=== PATIENT | male | born 1955 | race African-American/Black ===

== ENCOUNTER → 2017-05-24 | Outpatient (CLI) | payer BC ==
--- NOTE | 2017-05-24 09:18 | RADIOLOGY REPORT (SQ) ---
EXAM DESCRIPTION: CT LUNG CANCER SCREENING COMPLETED DATE/TIME: 05/24/2017 8:13 am REASON FOR STUDY: TOBACCO USE (Z72.0) Z72.0 TOBACCO USE Has the patient had a Chest CT scan within the past year? No Was the patient offered tobacco cessation counseling? Yes Was the patient engaged in shared decision making for this test? Yes Does the patient have signs or symptoms of Lung Cancer? No Is the patient a smoker? Yes How many packs per year? 365 How many years since quitting smoking? Not applicable Patients age: 62 COMPARISON: None. TECHNIQUE: Low Dose CT scan performed of the chest without intravenous contrast for purposes of scre ening for lung cancer. Images reviewed with lung, soft tissue and bone windows. Reconstructed coron al and sagittal MPR images reviewed. All images stored on PACS. All CT scanners at this facility use dose modulation, iterative reconstruction, and/or weight based d osing when appropriate to reduce radiation dose to as low as reasonably achievable (ALARA). [facility]: Dose Right [facility]: CareDose [facility]: Dose Right [facility]: Teradose 4D [facility]: [employer] RADIATION DOSE: 2.8 mGy. . LIMITATIONS: No technical limitations. FINDINGS: LUNGS AND PLEURA: No masses or nodules. No pleural effusions or calcifications. No pne umothorax. Minimal peripheral lung parenchymal interstitial changes. Biapical blebs are present. HILAR AND MEDIASTINAL STRUCTURES: No identified masses. No abnormal nodes. HEART AND VASCULAR STRUCTURES: No aortic aneurysm. No pericardial effusion. No cardiac devices. CORONARY ARTERY CALCIFICATIONS: No significant calcifications. UPPER ABDOMEN: No significant findings. THYROID AND OTHER SOFT TISSUES: No masses. No adenopathy. BONY STRUCTURES: No significant finding. OTHER: No other significant findings. IMPRESSION: NO SIGNIFICANT FINDING ON NON-CONTRASTED CHEST CT. NO OTHER CLINICALLY SIGNIFICANT/POTENTIALLY CLINICALLY SIGNIFICANT FINDINGS LUNGRADS: LUNGRADS: 1 NEGATIVE. NO NODULES, OR DEFINITELY BENIGN NODULES MODIFIER: NONE RECOMMENDATION: Continue annual screening with LDCT in 12 months. COMMENT: CRITERIA: No lung nodules. Nodules with specific calcifications: Complete, central, popcorn, concentric rings and fat containin g nodules. TECHNICAL DOCUMENTATION: JOB ID: [id number] Quality ID # [id number]: Final reports with documentation of one or more dose reduction techniques (e.g., Au tomated exposure control, adjustment of the mA and/or kV according to patient size, use of iterative reconstruction technique) 2010 [facility]
== END ==
LOC: RAD 07:30
PROVIDERS: ATTEND Physician Assistant
DX: Z72.0 Tobacco use (principal)
CPT/HCPCS: G0297

== ENCOUNTER 2018-01-27 13:45 | Emergency (ER) | payer SELFPAY ==
--- NOTE | 2018-01-27 14:17 | ER Document Report ---
ED General - General Chief Complaint: Difficulty Swallowing Stated Complaint: POSSIBLE ABSCESS Time Seen by Provider: 01/27/18 14:02 Mode of Arrival: Ambulatory Information source: Patient Notes: Patient sent to the emergency department from urgent care for possible peritonsillar abscess. Patient has a hx of periotonsillar abscess. Says he had one years ago that was incised and drained. His current symptoms feel similar to previous. Patient says that he began having throat pain and difficulty swallowing yesterday. Denies fever, chills, rhinorrhea, cough. I have greeted and performed a rapid initial assessment of this patient. A comprehensive ED assessment and evaluation of the patient, analysis of test results and completion of the medical decision making process will be conducted by additional ED providers. PHYSICAL EXAMINATION: GENERAL: Well-appearing, well-nourished and in no acute distress. HEAD: Atraumatic, normocephalic. EYES: Pupils equal round extraocular movements intact, conjunctiva are normal. ENT: Nares patent. Unable to completely visualize the posterior pharynx. Slight swelling on the left. Patient unable to open mouth very wide. NECK: Normal range of motion. LUNGS: No respiratory distress Musculoskeletal: Normal range of motion NEUROLOGICAL: Normal speech, normal gait. PSYCH: Normal mood, normal affect. SKIN: Warm, Dry, normal turgor, no rashes or lesions noted. TRAVEL OUTSIDE OF THE [place] IN LAST 30 DAYS: No - Related Data Allergies/Adverse Reactions: No Known Allergies Allergy (Verified 01/27/18 13:45) Past Medical History - Social History Smoking Status: Smoker,Current Status Unk Family History: Reviewed & Not Pertinent - Past Medical History Cardiac Medical History: Reports: Hx Hypertension Pulmonary Medical History: Reports: Hx Pneumonia Denies: Hx Tuberculosis Endocrine Medical History: Reports: Hx Diabetes Mellitus Type 2 GI Medical History: Denies: Hx Gastroesophageal Reflux Disease Past Surgical History: Denies: Hx Pacemaker - Immunizations Hx Diphtheria, Pertussis, Tetanus Vaccination: No Physical Exam - Vital signs Vitals: Temp Pulse Resp BP Pulse Ox 98.5 F 71 16 191/96 H 96 01/27/18 13:51 01/27/18 13:51 01/27/18 13:51 01/27/18 13:51 01/27/18 13:51 Course - Vital Signs Vital signs: Temp Pulse Resp BP Pulse Ox 98.5 F 71 16 191/96 H 96 01/27/18 13:51 01/27/18 13:51 01/27/18 13:51 01/27/18 13:51 01/27/18 13:51 Discharge - Discharge Referrals: MARY ALEXANDRE PA [Primary Care Provider] - Follow up as needed
[2018-01-27 14:31] LABS: ABSOLUTE BASOPHILS # (AUTO) 0.1 10^3/uL (0.0-0.2); ABSOLUTE EOSINOPHILS # (AUTO) 0.4 10^3/uL (0.0-0.6); ABSOLUTE LYMPHOCYTES (AUTO) 2.3 10^3/uL (0.5-4.7); ABSOLUTE MONOCYTES (AUTO) 0.6 10^3/uL (0.1-1.4); BASOPHILS % (AUTO) 1.1 % (0-2); EOSINOPHILS % (AUTO) 3.9 % (0-6); HEMATOCRIT 41.4 % (37.9-51.0); HEMOGLOBIN 14.5 g/dL (13.5-17.0); LYMPHOCYTES % (AUTO) 24.8 % (13-45); MEAN CORPUSCULAR HEMOGLOBIN 34.1 pg (27.0-33.4); MEAN CORPUSCULAR HGB CONC 35.1 g/dL (32.0-36.0); MEAN CORPUSCULAR VOLUME 97 fl (80-97); MONOCYTES % (AUTO) 6.9 % (3-13); PLATELET COUNT 169 10^3/uL (150-450); RED BLOOD COUNT 4.26 10^6/uL (4.35-5.55); RED CELL DISTRIBUTION WIDTH 13.4 % (11.5-14.0); SEGMENTED NEUTROPHILS % (AUTO) 63.3 % (42-78); TOTAL CELLS COUNTED % (AUTO) 100 %; WHITE BLOOD COUNT 9.4 10^3/uL (4.0-10.5)
[2018-01-27 14:52] LABS: ALANINE AMINOTRANSFERASE 40 U/L (21-72); ALKALINE PHOSPHATASE 67 U/L (38-126); ANION GAP 11 (5-19); ASPARTATE AMINO TRANSFERASE 32 U/L (17-59); BILIRUBIN,DIRECT 0.2 mg/dL (0.0-0.4); BILIRUBIN,TOTAL 0.4 mg/dL (0.2-1.3); BLOOD UREA NITROGEN 11 mg/dL (7-20); CALCIUM 9.3 mg/dL (8.4-10.2); CARBON DIOXIDE 27 mmol/L (22-30); CHLORIDE 104 mmol/L (98-107); GLUCOSE 124 mg/dL (75-110); POTASSIUM 3.8 mmol/L (3.6-5.0); SODIUM 141.7 mmol/L (137-145)
--- NOTE | 2018-01-27 15:43 | RADIOLOGY REPORT (SQ) ---
EXAM DESCRIPTION: CT SOFT TISSUE NECK WITH COMPLETED DATE/TIME: 01/27/2018 3:24 pm REASON FOR STUDY: soft throat, muffled voice. COMPARISON: CT soft tissue neck 08/05/2011 TECHNIQUE: Post IV contrasted scanning from skull base through lung apices with review of bone, soft tissue and lung windows. Reconstructed coronal and sagittal MPR images reviewed. All images stored on PACS. All CT scanners at this facility use dose modulation, iterative reconstruction, and/or weight based d osing when appropriate to reduce radiation dose to as low as reasonably achievable (ALARA). [facility]: Dose Right [facility]: CareDose [facility]: Dose Right [facility]: Teradose 4D [facility]: [employer] CONTRAST TYPE AND DOSE: contrast/concentration: Isovue 350.00 mg/ml; Total Contrast Delivered: 74.0 ml; Total Saline Delivered: 32.0 ml RENAL FUNCTION: Creatinine 1.0 RADIATION DOSE: CT Rad equipment meets quality standard of care and radiation dose reduction techniq ues were employed. CTDIvol: 15.2 mGy. DLP: 584 mGy-cm. . LIMITATIONS: None. FINDINGS: The left pharyngeal tonsil is enlarged, 5 cm craniocaudad by 3.4 cm transverse by 3 cm AP. There is an ill-defined hypodensity along the deep aspect of the left pharyngeal tonsil axial image 58 and coronal image 29, worrisome for either an intratonsillar abscessor a deep peritonsillar absc ess. This measures about 1.1 x 1.6 cm in size on axial image 58. Moderate airway narrowing is present in the oropharynx at the level of the pharyngeal tonsil. There is inflammation in the left parapharyngeal space, extending down into the supraglottic larynx o n axial images 62-69. Asymmetric swelling of the left area epiglottic fold is present with effacemen t of the left piriform recess. No prevertebral phlegmon or fluid. These findings were called to Dr. Mcgovern in the emergency room. SKULL BASE: Unremarkable MAJOR SALIVARY GLANDS: No solid or cystic masses. No inflammatory changes. LYMPHADENOPATHY: No adenopathy. MUCOSAL MASSES OR ASYMMETRY: As above LARYNX/CORDS: As above VASCULAR STRUCTURES: The major vessels are patent. LUNG APICES: Clear. BONES: Intact. THYROID: Normal size. No masses. PARANASAL SINUSES: Clear. OTHER: No other significant finding. IMPRESSION: Left pharyngeal tonsillitis with 1.6 x 1.1 cm intra tonsillar or peritonsillar abscess a long the deep aspect of the pharyngeal tonsil. TECHNICAL DOCUMENTATION: JOB ID: [id number] Quality ID # [id number]: Final reports with documentation of one or more dose reduction techniques (e.g., Au tomated exposure control, adjustment of the mA and/or kV according to patient size, use of iterative reconstruction technique) 2010 [employer]- All Rights Reserved Reading location - IP/workstation name: [email or web address]
[2018-01-27] MEDS ORDERED: CLINDAMYCIN 300 MG/D5W RTU 300 MG/50 ML RTUPB IV ONE (16:00)
[2018-01-27] MEDS ORDERED: DEXAMETHASONE SOD PHOS INJ 10 MG/1 ML VIAL IV ONE (16:01)
[2018-01-27] MEDS ORDERED: CLINDAMYCIN 600 MG/D5W RTU 600 MG/50 ML RTUPB IV ONE (16:01)
--- NOTE | 2018-01-27 19:12 | ER Document Report ---
ED General - General Chief Complaint: Difficulty Swallowing Stated Complaint: POSSIBLE ABSCESS Time Seen by Provider: 01/27/18 14:02 Mode of Arrival: Ambulatory Information source: Patient Notes: This is a 62-year-old man with a history of hypertension, diabetes who he does have a history of peritonsillar abscess that had to be drained in the past that presents to the emergency room with a sore throat. He states it is only started for a day and he did not wanted to progress to the way it was last time. He is able to swallow and is having no difficulty breathing. He has had no fever. TRAVEL OUTSIDE OF THE [place] IN LAST 30 DAYS: No - HPI Onset: Yesterday Onset/Duration: Gradual Quality of pain: Dull Severity: Moderate Pain Level: 2 Associated symptoms: denies: Chest pain, Hoarseness, Shortness of breath Exacerbated by: Denies Relieved by: Denies Similar symptoms previously: Yes Recently seen / treated by doctor: No - Related Data Allergies/Adverse Reactions: No Known Allergies Allergy (Verified 01/27/18 13:45) Past Medical History - General Information source: Patient - Social History Smoking Status: Smoker,Current Status Unk Cigarette use (# per day): Yes - 10 cigarettes a day Chew tobacco use (# tins/day): No Frequency of alcohol use: Occasional Drug Abuse: None Lives with: Family Family History: Reviewed & Not Pertinent Patient has suicidal ideation: No Patient has homicidal ideation: No - Past Medical History Cardiac Medical History: Reports: Hx Hypertension Pulmonary Medical History: Reports: Hx Pneumonia Denies: Hx Tuberculosis Endocrine Medical History: Reports: Hx Diabetes Mellitus Type 2 Renal/ Medical History: Denies: Hx Peritoneal Dialysis GI Medical History: Denies: Hx Gastroesophageal Reflux Disease Past Surgical History: Denies: Hx Pacemaker - Immunizations Hx Diphtheria, Pertussis, Tetanus Vaccination: No Review of Systems - Review of Systems Constitutional: denies: Chills, Fever EENT: See HPI Cardiovascular: No symptoms reported Respiratory: No symptoms reported Gastrointestinal: No symptoms reported Genitourinary: No symptoms reported Male Genitourinary: No symptoms reported Musculoskeletal: No symptoms reported Skin: No symptoms reported Hematologic/Lymphatic: No symptoms reported Neurological/Psychological: No symptoms reported Physical Exam - Vital signs Vitals: Temp Pulse Resp BP Pulse Ox 98.5 F 71 16 191/96 H 96 01/27/18 13:51 01/27/18 13:51 01/27/18 13:51 01/27/18 13:51 01/27/18 13:51 Notes: Physical exam: GENERAL: 62-year-old man, alert and oriented x3, no acute distress HEAD: Atraumatic, normocephalic. EYES: Pupils equal round and reactive to light, extraocular movements intact, sclera anicteric, conjunctiva are normal. ENT: Oropharynx shows some erythema posteriorly. He has no obvious fluctuance to the posterior wall in the peritonsillar area. There is swelling of the tonsils (more on the left). There is no stridor, no uvula deviation, no hot potato voice, no drooling. NECK: Normal range of motion, supple without obvious mass. There is no tenseness of the tissue procedure. A LUNGS: Breath sounds clear to auscultation bilaterally and equal. No wheezes rales or rhonchi. HEART: Regular rate and rhythm without murmurs, rubs or gallops. ABDOMEN: Soft, normoactive bowel sounds. No tenderness to palpation. No guarding, no rebound. No masses appreciated. EXTREMITIES: Normal range of motion, no pitting or edema. No clubbing or cyanosis. NEUROLOGICAL: Cranial nerves II through XII grossly intact. Normal speech, moving all extremities. PSYCH: Normal mood, normal affect. SKIN: Warm, Dry, normal turgor, no rashes or lesions noted. Course - Re-evaluation Re-evalutation: 01/27/18 19:16 Note: The CT reports that the CT has the beginnings of a tonsillar abscess or dali-tonsillar abscess. The patient states that his symptoms are nowhere near as bad as it has been in the past where he has had incision and drainage in the throat. If there is a fluid collection in the tonsillar itself, it usually responds to antibiotics alone. Patient was given IV antibiotics and a shot of Decadron in the ER. I will send him home on oral clindamycin. I will give him ENT referral referral. He is able to swallow and he is having no difficulty breathing and states he is feeling good right now. 01/27/18 19:27 I discussed the options with the patient (i.e. attempted drainage). He would like to try the above conservative approach first. - Vital Signs Vital signs: Temp Pulse Resp BP Pulse Ox 98.5 F 71 11 L 212/108 H 96 01/27/18 13:51 01/27/18 13:51 01/27/18 17:11 01/27/18 17:11 01/27/18 17:11 - Laboratory Result Diagrams: 01/27/18 14:17 01/27/18 14:17 Laboratory results interpreted by me: 01/27/18 01/27/18 14:17 14:17 RBC 4.26 L [facility] 34.1 H Glucose 124 H - Diagnostic Test Radiology reviewed: Image reviewed, Reports reviewed - CT does show infection around the tonsil with possible early abscess in the tonsil itself was starting in the peritonsillar area. Discharge - Discharge Clinical Impression: Tonsillitis, Early tonsillar abscess Condition: Stable Disposition: HOME, SELF-CARE Additional Instructions: As we discussed, you may be developing an abscess like in the past. If the infection is within the tonsil itself, it should respond to antibiotics. If an abscess is forming outside the tonsil (in the peritonsillar region), it may get worse. I would like you to gargle with salt water or Listerine daily. Want you to continue with the antibiotics as prescribed. Continue with your blood pressure medicines. I do want you to see an ENT doctor: Call the number below tomorrow. Tell them you were in the emergency room and they were concerned about a developing abscess and that they wanted you seen this week. Return to the emergency room if symptoms worsen: Unable to swallow, difficulty breathing, chest or any concerns it is getting worse. Follow-up with an ENT Doctor: [facility] [address] [place] [address] Toll Free: Prescriptions: Clindamycin HCl [Cleocin 300 mg Capsule] 300 mg PO Q6 #30 capsule Hydrochlorothiazide 25 mg PO DAILY #30 tablet Referrals: MARY ALEXANDRE PA [NO LOCAL MD] - Follow up as needed [facility] [Provider Group] - Follow up as needed ([place] block this is the number the [facility]: Call them for follow-up of your blood pressure.)
[2018-01-27 19:46] VITALS: BP 193/101
== END 2018-01-27 19:46 | disposition home or self-care (01) ==
LOC: ER 13:45
DX: J03.90 Acute tonsillitis, unspecified (principal); F17.210 Nicotine dependence, cigarettes, uncomplicated; I10 Essential (primary) hypertension; E11.9 Type 2 diabetes mellitus without complications
CPT/HCPCS: 99283; 96375; 96365; 96366; 36415; 87070; 87880; 85025; 80053; 70491; J1100

== ENCOUNTER → 2018-11-25 | Outpatient (CLI) | payer BC ==
--- NOTE | 2018-11-25 12:01 | RADIOLOGY REPORT (SQ) ---
EXAM DESCRIPTION: U/S RETROPERITON (RENAL/AORTA) COMPLETED DATE/TIME: 11/25/2018 10:45 am REASON FOR STUDY: (N18.2)CHRONIC KIDNEY DISEASE, STAGE 2 (MILD) N18.2 CHRONIC KIDNEY DISEASE, STAGE 2 (MILD) COMPARISON: None. TECHNIQUE: Dynamic and static grayscale images acquired of the kidneys and bladder and recorded on P ACS. Additional selected color Doppler and spectral images recorded. LIMITATIONS: None. FINDINGS: RIGHT KIDNEY: Normal size. Normal echogenicity. No solid or suspicious masses. There is a cyst along the superior pole measuring up to 2.6 cm. Inferior pole cyst measuring 1.3 cm. No hydro nephrosis. No calcifications. LEFT KIDNEY: Normal size. Normal echogenicity. Hypoechoic area in the interpolar region measuring u p to 1.2 cm. No hydronephrosis. No calcifications. BLADDER: No masses. OTHER FINDINGS: No other significant finding. IMPRESSION: No hydronephrosis. Right renal cysts. Additional hypoechoic areas in the left interpolar region, possibly also cysts bu t incompletely characterized. Consider follow-up ultrasound or multiphase CT or MRI for confirmation . TECHNICAL DOCUMENTATION: JOB ID: [id number] [employer]- All Rights Reserved Reading location - IP/workstation name: [email or web address]
== END ==
LOC: RAD 09:37
PROVIDERS: ATTEND Family Medicine
DX: N18.2 Chronic kidney disease, stage 2 (mild) (principal); N28.1 Cyst of kidney, acquired
CPT/HCPCS: 76770

== ENCOUNTER → 2018-12-03 | Outpatient (CLI) | payer BC ==
--- NOTE | 2018-12-03 13:32 | RADIOLOGY REPORT (SQ) ---
EXAM DESCRIPTION: CT ABD/PELVIS NO ORAL OR IV COMPLETED DATE/TIME: 12/03/2018 12:54 pm REASON FOR STUDY: R31.9 HEMATURIA, UNSPECIFIED R31.9 HEMATURIA, UNSPECIFIED COMPARISON: None. TECHNIQUE: CT scan of the abdomen and pelvis performed without intravenous or oral contrast. Images reviewed with lung, soft tissue, and bone windows. Reconstructed coronal and sagittal MPR images revi ewed. All images stored on PACS. All CT scanners at this facility use dose modulation, iterative reconstruction, and/or weight based d osing when appropriate to reduce radiation dose to as low as reasonably achievable (ALARA). [facility]: Dose Right [facility]: CareDose [facility]: Dose Right [facility]: Teradose 4D [facility]: [employer] RADIATION DOSE: CT Rad equipment meets quality standard of care and radiation dose reduction techniq ues were employed. CTDIvol: 13.5 mGy. DLP: 757 mGy-cm.mGy. LIMITATIONS: None. FINDINGS: LOWER CHEST: No significant findings. No nodules or infiltrates. NON-CONTRASTED LIVER, SPLEEN, ADRENALS: Evaluation limited by lack of IV contrast. No identified sign ificant masses. PANCREAS: No masses. No peripancreatic inflammatory changes. GALLBLADDER: No identified stones by CT criteria. No inflammatory changes to suggest cholecystitis. RIGHT KIDNEY AND URETER: No suspicious masses. Assessment limited by lack of IV contrast. Stable charla earance of the previously-seen 2.4 cm upper pole cyst. Stable additional subcentimeter lower pole cy st. No significant calcifications. No hydronephrosis or hydroureter. LEFT KIDNEY AND URETER: No discrete solid masses although assessment limited by lack of intravenous c ontrast. Previously-seen hypoechoic area measures water attenuation and likely represent cysts altho ugh incompletely characterized. No significant calcifications. No hydronephrosis or hydroureter. AORTA AND RETROPERITONEUM: Aortoiliac atherosclerosis. No aneurysm. No retroperitoneal adenopathy o r hemorrhage. BOWEL AND PERITONEAL CAVITY: No focal bowel wall thickening. No evidence of intestinal obstruction. APPENDIX: Normal appendix (Axial image 83). PELVIS, BLADDER, AND ABDOMINAL WALL:Unremarkable urinary bladder. Prostatomegaly measuring 4.9 cm tr ansversely. No free fluid or mass. BONES: No acute bony abnormality. No suspicious osseous lesions. OTHER: No other significant finding. IMPRESSION: 1. No evidence of nephrolithiasis or findings to explain hematuria. Stable renal cyst and low-density additional renal lesions, likely cyst but difficult to completely characterize due to size. 2. No other evidence of acute intra-abdominal/pelvic process. COMMENT: Quality ID # [id number]: Final reports with documentation of one or more dose reduction techniques (e.g., Automated exposure control, adjustment of the mA and/or kV according to patient size, use of iterative reconstruction technique) TECHNICAL DOCUMENTATION: JOB ID: [id number] [employer]- All Rights Reserved Reading location - IP/workstation name: [email or web address]
== END ==
LOC: RAD 12:37
PROVIDERS: ATTEND Family Medicine
DX: N28.1 Cyst of kidney, acquired (principal); R31.9 Hematuria, unspecified
CPT/HCPCS: 74176